=== PATIENT | female | born 1975 | race Caucasian/White ===

== ENCOUNTER → 2016-11-08 | Outpatient (CLI) | payer MEDICARE | LOC: HEART 5 15:00 | DX: R06.02 Shortness of breath (principal); J44.9 Chronic obstructive pulmonary disease, unspecified; F17.210 Nicotine dependence, cigarettes, uncomplicated | CPT/HCPCS: 94010 ==

== ENCOUNTER 2016-12-15 17:31 | Emergency (ER) | payer MEDICARE | END 2016-12-15 20:30 | disposition home or self-care (01) | LOC: ER1 17:31 | DX: H11.32 Conjunctival hemorrhage, left eye (principal); J44.9 Chronic obstructive pulmonary disease, unspecified; J45.909 Unspecified asthma, uncomplicated; Z88.1 Allergy status to other antibiotic agents; Z88.2 Allergy status to sulfonamides; Z88.8 Allergy status to other drugs, medicaments and biological substances; Z91.040 Latex allergy status | CPT/HCPCS: 99283 ==

== ENCOUNTER → 2017-04-10 | Outpatient (CLI) | payer MEDICARE ==
[2017-04-10 21:19] LABS: HEMOGLOBIN 15.9 gm/dl (12.3-15.3); RED BLOOD COUNT 4.96 M/UL (4.00-5.10); WHITE BLOOD COUNT 13.5 K/UL (4.5-11.0)
== END ==
LOC: LAB 20:32
PROVIDERS: Urology
DX: R30.0 Dysuria (principal)
CPT/HCPCS: 36415; 85027; 87086

== ENCOUNTER → 2021-03-23 | Outpatient (CLI) | payer SELFPAY | LOC: LAB 17:02 | DX: R30.0 Dysuria (principal); R09.02 Hypoxemia | CPT/HCPCS: 36600; 82803; 87086 ==

== ENCOUNTER → 2021-03-24 | Outpatient (CLI) | payer SELFPAY | LOC: KOH-I 14:15 | DX: J42 Unspecified chronic bronchitis (principal) | CPT/HCPCS: 71046 ==

== ENCOUNTER → 2021-11-22 | Outpatient (CLI) | payer SELFPAY | LOC: EXRD 10-12 15:00 | DX: E04.2 Nontoxic multinodular goiter (principal); M54.50 Low back pain, unspecified; M54.16 Radiculopathy, lumbar region | CPT/HCPCS: 76536 ==